=== PATIENT | female | born 1965 | race Caucasian/White ===

== ENCOUNTER 2024-08-03 17:31 | Emergency (ER) | payer OTHER ==
[~2024-08-03] VITALS: Ht 160 cm; Wt 81.6 kg
[2024-08-03 17:49] VITALS: O2SAT 98
[2024-08-03] MEDS: KETOROLAC 30MG/ML VIAL IM ONE (19:15)
[2024-08-03] MEDS: ACETAMINOPHEN 325MG TABLET PO ONE (19:15)
[2024-08-03] MEDS ORDERED: CYCL25PO15 MT (20:14)
[2024-08-03] MEDS ORDERED: TOPUD PO (20:14)
[2024-08-03] MEDS ORDERED: IBUP-2029 MT (20:14)
[2024-08-03 20:31] VITALS: BP 169/84; PULSE 74; RESP 17; TEMP 36.7; O2SAT 98
== END 2024-08-03 22:18 | disposition home or self-care (01) ==
LOC: ER 17:31
DX: M25.512 Pain in left shoulder (principal); M54.9 Dorsalgia, unspecified; V49.9XXA Car occupant (driver) (passenger) injured in unspecified traffic accident, initial encounter; Y93.89 Activity, other specified; Y92.89 Other specified places as the place of occurrence of the external cause; Y99.8 Other external cause status
CPT/HCPCS: 99284; 72100; 73030; 96372; J1885